=== PATIENT | male | born 1995 | race American Indian/Alaskan Native ===

== ENCOUNTER 2020-09-24 15:06 | Emergency (ER) | payer SELFPAY ==
--- NOTE | 2020-09-24 16:10 | XRay Report ---
XR chest routine 2V INDICATION / CLINICAL INFORMATION: Chest pain COMPARISON: None available. FINDINGS: SUPPORT DEVICES: None. HEART / MEDIASTINUM: No significant abnormality. LUNGS / PLEURA: Lungs are clear. Costophrenic sulci are sharp. No pneumothorax. ADDITIONAL FINDINGS: No significant additional findings. IMPRESSION: 1. No acute findings. Signer Name: Akira Ledesma MD Signed: 09/24/2020 4:05 PM Workstation Name: [id number]
[2020-09-24 16:38] LABS: Hematocrit 40.5 % (35.5-45.6); Mean Corpuscular HGB Conc 35 % (32-34); Mean Corpuscular Volume 94 fl (84-94); Platelet Count 274 K/mm3 (140-440); Red Blood Count 4.31 M/mm3 (3.65-5.03); Red Cell Distribution Width 14.3 % (13.2-15.2)
[2020-09-24 17:05] LABS: Alanine Aminotransferase 13 units/L (7-56); Albumin 4.6 g/dL (3.9-5); Blood Urea Nitrogen 14 mg/dL (9-20); Calcium 9.2 mg/dL (8.4-10.2); Hemolysis Index 6
[2020-09-24 17:09] LABS: BUN/Creatinine Ratio 20
[2020-09-24 17:13] LABS: RBC Morphology Normal; Total Cells Counted 100; Toxic Granulation 1+
[2020-09-24 17:14] LABS: Platelet Estimate Consistent w Auto
--- NOTE | 2020-09-24 17:19 | Emergency Department Report ---
ED Chest Pain HPI - General Chief Complaint: Chest Pain Stated Complaint: CHEST PAIN Time Seen by Provider: 09/24/20 16:17 Source: patient Mode of arrival: Ambulatory Limitations: No Limitations - History of Present Illness Initial Comments: Patient is a 25-year-old male presents emergency room with points of left-sided chest pain that occurred yesterday. He states that it occurred while he was at work and he left work. He states he describes as an occasional sharp pain. He states that he has this intermittently over the last couple years. Patient states that due to leaving work he needed an excuse. He denies any pain at all currently. He denies any sick contacts, recent travel, recent surgery. He denies any nausea, vomiting, diarrhea, fever, shortness of breath, leg swelling, pleuritic chest pain, exertional chest pain. Past medical history of seizures. No allergies to medications. He endorses marijuana use. He denies any family cardiac history. Severity scale (0 -10): 6 - Related Data Allergies Allergy/AdvReac Type Severity Reaction Status Date / Time No Known Allergies Allergy Unverified 09/24/20 15:18 Heart Score - HEART Score History: Slightly suspicious EKG: Normal Age: < 45 Risk factors: No known risk factors Troponin: < normal limit HEART Score: 0 - EKG Read Time Time EKG Completed: 15:24 EKG Read Time: 15:27 ED Review of Systems ROS: Stated complaint: CHEST PAIN Other details as noted in HPI Comment: All other systems reviewed and negative ED Past Medical Hx - Past Medical History Previous Medical History?: No - Surgical History Past Surgical History?: No ED Physical Exam - General Limitations: No Limitations General appearance: alert, in no apparent distress - Head Head exam: Present: atraumatic, normocephalic - Eye Eye exam: Present: normal appearance - ENT ENT exam: Present: mucous membranes moist - Respiratory Respiratory exam: Present: normal lung sounds bilaterally. Absent: respiratory distress, wheezes, rales, rhonchi, stridor, chest wall tenderness, accessory muscle use, decreased breath sounds, prolonged expiratory - Cardiovascular Cardiovascular Exam: Present: regular rate, normal rhythm, normal heart sounds. Absent: systolic murmur, diastolic murmur, rubs, gallop - Extremities Exam Extremities exam: Absent: pedal edema - Neurological Exam Neurological exam: Present: alert, oriented X3 - Psychiatric Psychiatric exam: Present: normal affect, normal mood - Skin Skin exam: Present: warm, dry, intact ED Course Vital Signs 09/24/20 09/24/20 15:19 17:30 Temperature 98.5 F 97.4 F L Pulse Rate 51 L 50 L Respiratory 18 16 Rate Blood Pressure 114/57 [Right] O2 Sat by Pulse 100 100 Oximetry ED Medical Decision Making - Lab Data Result diagrams: 09/24/20 16:24 09/24/20 16:24 Lab Results 09/24/20 09/24/20 Range/Units 16:24 16:24 WBC 3.7 L (4.5-11.0) K/mm3 RBC 4.31 (3.65-5.03) M/mm3 Hgb 14.0 (11.8-15.2) gm/dl Hct 40.5 (35.5-45.6) % MCV 94 (84-94) fl MCH 32 (28-32) pg MCHC 35 H (32-34) % RDW 14.3 (13.2-15.2) % Plt Count 274 (140-440) K/mm3 Add Manual Diff Complete Total Counted 100 Seg Neutrophils % Visualization Developer Seg Neuts % (Manual) 34.0 L (40.0-70.0) % Lymphocytes % (Manual) 52.0 H (13.4-35.0) % Reactive Lymphs % (Man) 1.0 % Monocytes % (Manual) 9.0 H (0.0-7.3) % Eosinophils % (Manual) 4.0 (0.0-4.3) % Nucleated RBC % Not Reportable Seg Neutrophils # Man 1.3 L (1.8-7.7) K/mm3 Band Neutrophils # 0.0 K/mm3 Lymphocytes # (Manual) 1.9 (1.2-5.4) K/mm3 Abs React Lymphs (Man) 0.0 K/mm3 Monocytes # (Manual) 0.3 (0.0-0.8) K/mm3 Eosinophils # (Manual) 0.1 (0.0-0.4) K/mm3 Basophils # (Manual) 0.0 (0.0-0.1) K/mm3 Metamyelocytes # 0.0 K/mm3 Myelocytes # 0.0 K/mm3 Promyelocytes # 0.0 K/mm3 Blast Cells # 0.0 K/mm3 WBC Morphology Not Reportable Hypersegmented Neuts Not Reportable Hyposegmented Neuts Not Reportable Hypogranular Neuts Not Reportable Smudge Cells Not Reportable Toxic Granulation 1+ Toxic Vacuolation Not Reportable Dohle Bodies Not Reportable Pelger-Huet Anomaly Not Reportable Colt Rods Not Reportable Platelet Estimate Consistent w auto Clumped Platelets Not Reportable Plt Clumps, EDTA Not Reportable Large Platelets Not Reportable Giant Platelets Not Reportable Platelet Satelliting Not Reportable Plt Morphology Comment Not Reportable RBC Morphology Normal Dimorphic RBCs Not Reportable Polychromasia Not Reportable Hypochromasia Not Reportable Poikilocytosis Not Reportable Anisocytosis Not Reportable Microcytosis Not Reportable Macrocytosis Not Reportable Spherocytes Not Reportable Pappenheimer Bodies Not Reportable Sickle Cells Not Reportable Target Cells Not Reportable Tear Drop Cells Not Reportable Ovalocytes Not Reportable Helmet Cells Not Reportable Nelson-Oradell Bodies Not Reportable Conway Rings Not Reportable Tamiment Cells Not Reportable Bite Cells Not Reportable Crenated Cell Not Reportable Elliptocytes Not Reportable Acanthocytes (Spur) Not Reportable Rouleaux Not Reportable Hemoglobin C Crystals Not Reportable Schistocytes Not Reportable Malaria parasites Not Reportable Krishna Bodies Not Reportable Hem Pathologist Commnt No Sodium 139 (137-145) mmol/L Potassium 4.1 (3.6-5.0) mmol/L Chloride 105.2 (98-107) mmol/L Carbon Dioxide 26 (22-30) mmol/L Anion Gap 12 mmol/L BUN 14 (9-20) mg/dL Creatinine 0.7 L (0.8-1.3) mg/dL Estimated GFR > 60 ml/min BUN/Creatinine Ratio 20 % Glucose 83 (75-100) mg/dL Calcium 9.2 (8.4-10.2) mg/dL Total Bilirubin 0.20 (0.1-1.2) mg/dL AST 16 (5-40) units/L ALT 13 (7-56) units/L Alkaline Phosphatase 54 (35-129) units/L Troponin T < 0.010 (0.00-0.029) ng/mL Total Protein 7.0 (6.3-8.2) g/dL Albumin 4.6 (3.9-5) g/dL Albumin/Globulin Ratio 1.9 % Vital Signs 09/24/20 09/24/20 15:19 17:30 Temperature 98.5 F 97.4 F L Pulse Rate 51 L 50 L Respiratory 18 16 Rate Blood Pressure 114/57 [Right] O2 Sat by Pulse 100 100 Oximetry - EKG Data EKG shows normal: sinus rhythm, axis, intervals, QRS complexes Rate: bradycardia (51 bpm) - EKG Data 09/24/20 17:16 ST elevation which appears likely consistent with early repolarization - Radiology Data Radiology results: report reviewed Ordering Physician: ALLEN RAMOS Date of Service: 09/24/20 Procedure(s): XR chest routine 2V Accession Number(s): [id number] cc: ALLEN RAMOS Fluoro Time In Minutes: XR chest routine 2V INDICATION / CLINICAL INFORMATION: Chest pain COMPARISON: None available. FINDINGS: SUPPORT DEVICES: None. HEART / MEDIASTINUM: No significant abnormality. LUNGS / PLEURA: Lungs are clear. Costophrenic sulci are sharp. No pneumothorax. ADDITIONAL FINDINGS: No significant additional findings. IMPRESSION: 1. No acute findings. Signer Name: Akira Ledesma MD Signed: 09/24/2020 4:05 PM Workstation Name: [id number] Transcribed By: CS Dictated By: Akira Ledesma MD Electronically Authenticated By: Akira Ledesma MD Signed Date/Time: 09/24/201604 DD/ 04 TD/TT: - Medical Decision Making Patient is a 25-year-old male presents emergency room with points of left-sided chest pain that occurred yesterday. He states that it occurred while he was at work and he left work. He states he describes as an occasional sharp pain. He states that he has this intermittently over the last couple years. Patient states that due to leaving work he needed an excuse. He denies any pain at all currently. He denies any sick contacts, recent travel, recent surgery. He denies any nausea, vomiting, diarrhea, fever, shortness of breath, leg swelling, pleuritic chest pain, exertional chest pain. Past medical history of seizures. No allergies to medications. He endorses marijuana use. He denies any family cardiac history. Vitals with mild bradycardia, otherwise stable. No abnormality on physical examination as documented in chart. EKG shows sinus bradycardia and ST elevation from early repolarization, otherwise EKG is stable. Labs are stable, troponin is negative. Chest x-ray with no acute process. Heart score is 0, low risk for cardiac event. Patient is PERC criteria negative for PE, PE unlikely. Patient is currently symptom free, pt will be referred to cardiology and primary care. Discussed all results with patient answered questions. Advised patient Please follow-up with your primary care doctor. Please follow-up with a meter repairer. Return to emergency room for new or worsening symptoms. Critical care attestation.: If time is entered above; I have spent that time in minutes in the direct care of this critically ill patient, excluding procedure time. ED Disposition Clinical Impression: Chest pain Qualifiers: Chest pain type: unspecified Qualified Code(s): R07.9 - Chest pain, unspecified Disposition: DC-01 TO HOME OR SELFCARE Is pt being admited?: No Does the pt Need Aspirin: No Condition: Stable Instructions: Nonspecific Chest Pain, Adult Additional Instructions: Please follow-up with your primary care doctor. Please follow-up with a meter repairer. Return to emergency room for new or worsening symptoms. Referrals: HARIS SMITH MD [Staff Physician] - 3-5 Days [facility] [Provider Group] - 3-5 Days ANTHONY BLEDSOE MD [Staff Physician] - 3-5 Days Forms: Work/School Release Form(ED) Time of Disposition: 17:20 Print Language: ESTONIAN
[2020-09-24 17:38] VITALS: BP 114/57
--- NOTE | 2020-09-26 19:11 | Electrocardiograph Report ---
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
== END 2020-09-24 17:30 | disposition home or self-care (01) ==
LOC: ED 15:06
DX: R07.89 Other chest pain (principal)
CPT/HCPCS: 36415; 71046; 80053; 84484; 85007; 85025; 93005; 99283

== ENCOUNTER 2020-09-27 23:17 | Emergency (ER) | payer SELFPAY | END 2020-09-27 23:21 | disposition left against medical advice (07) | LOC: ED 23:17 ==